=== PATIENT | male | born 1940 | race Caucasian/White ===

== ENCOUNTER 2017-08-24 12:19 | Day surgery (SDC) | payer OTHER ==
[2017-08-24] MEDS ORDERED: diphenhydrAMINE 25 MG CAP PO ONE (12:22)
[2017-08-24] MEDS ORDERED: FAMOTIDINE 20 MG TAB PO ONE (12:22)
[2017-08-24] MEDS ORDERED: DIAZEPAM 5 MG TAB PO ONE (12:22)
[2017-08-24] MEDS ORDERED: ASPIRIN EC 325 MG TAB PO ONE (12:22)
[2017-08-24] MEDS ORDERED: NS 1,000 ML IV ONE (12:22)
--- NOTE | 2017-08-24 12:41 | CPEKG ---
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
[2017-08-24 12:57] LABS: % IMMATURE GRANULYOCYTES 0.6 % (0.0-1.1); ABSOLUTE IMMATURE GRANULOCYTES 0.03 10^3/uL (0.00-0.10); ADD DIFF? NO; ADD MORPH? NO; ADD SCAN? NO; ATYPICAL LYMPHOCYTE FLAG 0 (0-99); FRAGMENT RBC FLAG 0 (0-99); HEMATOCRIT 44.1 % (40.0-51.0); HEMOGLOBIN 16.1 g/dL (13.7-17.5); LEFT SHIFT FLG 0 (0-99); LIPEMIA HEMOLYSIS FLAG 90 (0-99); MEAN CELL HEMOGLOBIN 33.8 pg (27.9-34.1); MEAN CELL HEMOGLOBIN CONCENTR. 36.5 g/dL (32.4-36.7); MEAN CELL VOLUME 92.5 fL (81.5-99.8); MEAN PLATELET VOLUME 9.8 fL (8.7-11.7); PLATELET CLUMPS FLAG 30 (0-99); PLATELET COUNT 256 10^3/uL (150-400); RED BLOOD CELL COUNT 4.77 10^6/uL (4.40-6.38); RED CELL DISTRIBUTION WIDTH 12.1 % (11.5-15.2)
[2017-08-24] MEDS ORDERED: fentaNYL 100 MCG/2 ML INJ ONE (13:05)
[2017-08-24] MEDS ORDERED: LIDOCAINE 1% 300 MG/30 ML SDV ONE (13:05)
[2017-08-24] MEDS ORDERED: MIDAZOLAM 2 MG/2 ML VIAL ONE (13:06)
[2017-08-24] MEDS ORDERED: IOPAMIDOL (ISOVUE-370) 150 ML BTL IV ONE (13:06)
[2017-08-24] MEDS ORDERED: VERAPAMIL 5 MG/2 ML VIAL ONE (13:06)
[2017-08-24] MEDS ORDERED: HEPARIN 10,000 UNIT/10 ML MDV ONE (13:06)
[2017-08-24 13:07] LABS: INR 1.08 (0.83-1.16); PROTIME(PATIENT) 13.9 SEC (12.0-15.0)
--- NOTE | 2017-08-24 13:12 | PDHPUP ---
History & Physical Update H&P update statement: This history and physical update is based on an assessment of the patient which was completed after admission or registration (within 24 hours), but prior to the surgery/procedure. H&P update: H&P reviewed & patient examined, no change in patient's condition since H&P completed
--- NOTE | 2017-08-24 13:13 | PDPROPOC ---
Sedation Plan of Care Sedation Plan of Care: vital signs stable, mental status noted, patient educated of risks, benefits, alternatives, patient can tolerate sedation ASA Classification: ASA 1 Planned drugs: fentanyl, midazolam Mallampati Score: Class 1 Mallampati Reference Image: Patient passed 3-3-2 rule?: Yes
[2017-08-24 13:16] LABS: ANION GAP 16 mEq/L (8-16); CALCIUM 9.4 mg/dL (8.5-10.4); CARBON DIOXIDE 26 mEq/l (22-31); CHLORIDE 101 mEq/L (97-110); CHOLESTEROL 154 mg/dL (140-220); CHOLESTEROL/HDL RATIO 3.58 RATIO (1.00-4.97); CREATININE 1.2 mg/dL (0.7-1.3); GLOMERULAR FILTRATION RATE 59; GLUCOSE 95 mg/dL (70-100); HIGH DENSITY LIPOPROTEIN 43 mg/dL (40-65); LDL/HDL RATIO 1.88 RATIO (1.00-3.64); LOW DENSITY LIPOPROTEIN 81 mg/dL (80-100); MAGNESIUM 2.3 mg/dL (1.6-2.3); NON-HIGH DENSITY LIPOPROTEIN 111 mg/dL (90-129); POTASSIUM 5.7 mEq/L (3.5-5.2); SODIUM 143 mEq/L (134-144); SPECIMEN HEMOLYSIS 117; TRIGLYCERIDE 154 mg/dL (40-150); VERY LOW DENSITY LIPOPROTEINS 30 mg/dL (8-25)
[2017-08-24 13:49] LABS: POTASSIUM 4.5 mEq/L (3.5-5.2)
[2017-08-24] MEDS ORDERED: NITROGLYCERIN 0.4 MG BTL SL PRN (14:41)
[2017-08-24] MEDS ORDERED: ATROPINE SULFATE 1 MG/10 ML SYR IVP PRN (14:41)
--- NOTE | 2017-08-24 14:41 | PDDXCAT ---
Diagnostic Cath Note - . Date: 08/24/17 Loader Machine: Ivy Indication: other (Exertional dyspnea [place] [employer] functional class 2/3 pattern. Abnormal stress test with evidence of nonsustained ventricular tachycardia.) - Procedure Access: right wrist Procedure: left heart catheterization, coronary angiography, left ventriculogram - Materials Left Heart Cath size: 5F Left Heart Cath materials: JL3.5, JR4.0 - Findings-Left Heart Catheterization LM: Moderate caliber vessel. Appropriate bifurcation into the left anterior descending and circumflex distributions. No angiographic disease. LAD: Large caliber, transapical vessel. 2 diagonal branches identified. Minimal luminal irregularities with no obstructive disease. LCX: Moderate caliber vessel. 3 obtuse marginal branches identified. Minimal luminal irregularities with no obstructive disease. RCA: Dominant vessel. The PDA and for posterolateral branches were identified. Minimal luminal irregularities with no obstructive disease. EDP: Left ventricular pressure 114/16/25 mmHg. LVEF: Greater than 70%. Wall motion: Hypercontractile wall motion with no focal wall motion abnormalities. - Findings-Right Heart Catheterization AO: Aortic pressure 129/76/99 mmHg. Complications: None. Estimated blood loss: <50ml Closure method: TR Band Assessment: 1. Minimal nonobstructive coronary artery disease. 2. Mildly elevated left ventricular ends diastolic pressure. 3. Hyperdynamic left ventricular systolic function. Plan: Consider alternate workup for the patient's exertional dyspnea. Intervention: None.
== END 2017-08-24 18:00 | disposition home or self-care (01) ==
LOC: FCATH 12:19
PROVIDERS: ATTEND Internal Medicine Cardiovascular Disease
PROC: 4A023N7 Measurement of Cardiac Sampling and Pressure, Left Heart, Percutaneous Approach (ICD-10-PCS; principal; 2017-08-24)
PROC: B2151ZZ Fluoroscopy of Left Heart using Low Osmolar Contrast (ICD-10-PCS; principal; 2017-08-24)
PROC: B2111ZZ Fluoroscopy of Multiple Coronary Arteries using Low Osmolar Contrast (ICD-10-PCS; principal; 2017-08-24)
DX: I25.10 Atherosclerotic heart disease of native coronary artery without angina pectoris (principal); I47.2 Ventricular tachycardia; I10 Essential (primary) hypertension; E78.5 Hyperlipidemia, unspecified; Z82.49 Family history of ischemic heart disease and other diseases of the circulatory system
CPT/HCPCS: J1644; J2250; J3010; Q9967